=== PATIENT | male | born 1955 | race Caucasian/White ===

== ENCOUNTER 2024-01-02 11:48 | Inpatient (IN) | payer MEDICARE ==
--- NOTE | 2024-01-02 13:09 | ED ---
Weakness HPI - General Chief complaint: Extremity Problem,Nontraumatic Stated complaint: unable to ambulate/leg infections Time Seen by Provider: 01/02/24 11:49 Source: patient, EMS, RN notes reviewed Mode of arrival: EMS Limitations: no limitations - History of Present Illness Initial comments: This is a 68-year-old male who presents to the emergency department for increasing weakness and lower extremity infections. Patient has been dealing with wounds to his left leg on and off over the last 3 years. Over the last year this has been much more persistent. A couple of weeks ago his PCP noticed drainage from the wounds and told EMS they were concerned about the patient becoming septic. They recommended he come to the emergency department for e valuation at that time, however he did not want to go then. He was started on Bactrim for these wounds and has been on it for several days. States that he has also been falling very frequently and has been increasingly weak over the last couple of weeks. EMS comes to his house almost daily when the patient falls to help him get back up. He does not have shortness of breath at rest, but does get winded very easily. Denies any chest pain. He is supposed to be on a diuretic but does not like to take it because it makes him urinate frequently. He is unable to get to the bathroom in time, causing him to urinate on himself. Denies any nausea, vomiting, fevers, or chills. MD Complaint: generalized weakness - Related Data Home Medications Medication Instructions Recorded Confirmed Bumetanide [BUMEX] 2 mg PO DAILY PRN 01/02/24 01/02/24 Levothyroxine Sodium [Synthroid] 137 mcg PO DAILY 01/02/24 01/02/24 Loratadine [Claritin] 10 mg PO DAILY 01/02/24 01/02/24 Metoprolol Tartrate [Lopressor] 25 mg PO BID 01/02/24 01/02/24 Sulfamethox-Tmp 800-160Mg [Bactrim 1 tab PO BID 01/02/24 01/02/24 DS 800-160 mg] Warfarin [Coumadin] 10 - 15 mg PO HS 01/02/24 01/02/24 glipiZIDE XL [Glucotrol Xl] 5 mg PO DAILY 01/02/24 01/02/24 metFORMIN HCL [Glucophage] 500 mg PO BID 01/02/24 01/02/24 Allergies Allergy/AdvReac Type Severity Reaction Status Date / Time No Known Allergies Allergy Verified 01/02/24 13:20 Review of Systems ROS Statement: Those systems with pertinent positive or pertinent negative responses have been documented in the HPI. ROS Other: All systems not noted in ROS Statement are negative. Past Medical History Past Medical History: Diabetes Mellitus History of Any Multi-Drug Resistant Organisms: None Reported Additional Past Surgical History / Comment(s): knee surgery Smoking Status: Never smoker Past Alcohol Use History: Rare Past Drug Use History: None Reported General Exam Limitations: no limitations General appearance: alert, in no apparent distress Head exam: Present: atraumatic, normocephalic, normal inspection Respiratory exam: Present: normal lung sounds bilaterally. Absent: respiratory distress, wheezes, rales, rhonchi, stridor Cardiovascular Exam: Present: regular rate, normal rhythm, normal heart sounds. Absent: systolic murmur, diastolic murmur, rubs, gallop, clicks GI/Abdominal exam: Present: other (Cutaneous candidiasis in the abdominal pannus) Extremities exam: Present: other (Left lower extremity erythema with multiple actively draining wounds and circumferential involvement. 2+ DP and PT pulses) Neurological exam: Present: alert, oriented X3, CN II-XII intact Psychiatric exam: Present: normal affect, normal mood Skin exam: Present: warm, dry, intact, normal color. Absent: rash Course Vital Signs 01/02/24 01/02/24 11:54 15:03 Temperature 97.9 F Pulse Rate 77 80 Respiratory 17 17 Rate Blood Pressure 127/68 127/59 O2 Sat by Pulse 98 97 Oximetry Medical Decision Making - Medical Decision Making This is a 68-year-old male who presents to the emergency department for weakness. Was pt. sent in by a medical professional or institution? @ -No Did you speak to anyone other than the patient for history? @ -No Did you review nursing and triage notes? @ -Yes, and I agree, it is accurate with regards to the patient's symptoms. Were old charts reviewed? @ -No Differential Diagnosis? @ -Differential Weakness: Hypoglycemia, shock, sepsis, hyponatremia, anemia, infection, HI, ETOH, adverse medicine reaction, overdose, stroke, this is not meant to be an all-inclusive l ist. EKG interpreted by me (3pts min.)? @ -EKG interpreted by me demonstrating the following: Sinus rhythm. Ventricular rate 69 bpm, [place] interval 170 ms, QRS duration 111 ms, QTc 417 ms. X-rays interpreted by me (1pt min.)? @ -Chest x-ray obtained, my interpretation identifies no localized consolidations or infiltrates. X-ray of the left tib-fib obtained. My interpretation identifies no evidence of soft tissue swelling. CT interpreted by me (1pt min.)? @ -Not obtained U/S interpreted by me (1pt. min.)? @ -Not obtained What testing was considered but not performed? (CT, X-rays, U/S, labs)? Why? @ -None What meds were considered but not given? Why? @ -None Did you discuss the management of the patient with other professionals? @ -Yes, Dr. Lowery, who accepts the patient for admission Did you reconcile home meds? @ -Yes Was smoking cessation discussed for >3mins.? @ -No Was critical care preformed (if so, how long)? @ -No Were there social determinants of health that impacted care today? How? (Homelessness, low income, unemployed, alcoholism, drug addiction, transportation, low edu. Level, literacy, decrease access to med. care, senior living, rehab)? @ -No Was there de-escalation of care discussed even if they declined? (Discuss DNR or withdrawal of care, Hospice)? @ -No What co-morbidities impacted this encounter? (DM, HTN, Smoking, COPD, CAD, Cancer, CVA, Hep., AIDS, mental health diagnosis, sleep apnea, morbid obesity)? @ -DM, hypothyroidism, morbid obesity, hx of PE Was patient admitted / discharged? @ -Admitted. Lab work demonstrates a mildly elevated CRP of 3.5 and was otherwise unremarkable. Urinalysis negative for signs of infection. X-ray of the chest and left tib-fib revealed no acute process. Patient's leg was covered in multiple wounds with circumferential involvement and active drainage. His abdominal pannus had significant cutaneous candidiasis. Patient states that he cleans this area with bleach regularly. Patient exhibiting fairly significant debility as well. He is falling essentially daily and has to call the fire department for assistance in getting back up and his is concerned about him continuing to decline and being able to care for him. Will admit patient to medicine for the left lower extremity cellulitis and failure of outpatient management as well as increasing weakness and debility. Wound cultures obtained. Patient started on vancomycin and cefepime. Nystatin powder ordered for the cutaneous candidiasis in the abdominal pannus. Consult placed for infectious disease and wound care. PT and OT consulted as well. Case discussed with ED attending Dr. Patterson. Undiagnosed new problem with uncertain prognosis? @ -None Drug Therapy requiring intensive monitoring for toxicity (Heparin, Nitro, Insulin, Cardizem)? @ -None Were any procedures done? @ -None Diagnosis/symptom? @ -Left lower extremity cellulitis and nonhealing wounds Acute, or Chronic, or Acute on Chronic? @ -Chronic Uncomplicated (without systemic symptoms) or Complicated (systemic symptoms)? @ -Uncomplicated Side effects of treatment? @ -None Exacerbation, Progression, or Severe Exacerbation] @ -Progression Poses a threat to life or bodily function? @ -Yes, can lead to life threatening infection - Lab Data Result diagrams: 01/02/24 13:01 01/02/24 13:01 Lab Results 01/02/24 01/02/24 01/02/24 Range/Units 13:01 13:01 13:01 WBC 3.5 L (3.8-10.6) k/uL RBC 4.23 L (4.30-5.90) m/uL Hgb 13.7 (13.0-17.5) gm/dL Hct 42.1 (39.0-53.0) % MCV 99.5 (80.0-100.0) fL MCH 32.3 (25.0-35.0) pg MCHC 32.5 (31.0-37.0) g/dL RDW 13.7 (11.5-15.5) % Plt Count 146 L (150-450) k/uL MPV 7.6 Neutrophils % 71 % Lymphocytes % 15 % Monocytes % 7 % Eosinophils % 6 % Basophils % 0 % Neutrophils # 2.5 (1.3-7.7) k/uL Lymphocytes # 0.5 L (1.0-4.8) k/uL Monocytes # 0.2 (0-1.0) k/uL Eosinophils # 0.2 (0-0.7) k/uL Basophils # 0.0 (0-0.2) k/uL PT 22.3 H (10.0-12.5) sec INR 2.2 H (<1.2) APTT 39.0 H (22.0-30.0) sec Sodium (137-145) mmol/L Potassium (3.5-5.1) mmol/L Chloride (98-107) mmol/L Carbon Dioxide (22-30) mmol/L Anion Gap mmol/L BUN (9-20) mg/dL Creatinine (0.66-1.25) mg/dL Est GFR (CKD-EPI)AfAm (>60 ml/min/1.73 sqM) Est GFR (CKD-EPI)NonAf (>60 ml/min/1.73 sqM) Glucose (74-99) mg/dL Calcium (8.4-10.2) mg/dL Magnesium (1.6-2.3) mg/dL Total Bilirubin (0.2-1.3) mg/dL AST (17-59) U/L ALT (4-49) U/L Alkaline Phosphatase (38-126) U/L Troponin I (0.000-0.034) ng/mL C-Reactive Protein (<1.0) mg/dL NT-Pro-B Natriuret Pep pg/mL Total Protein (6.3-8.2) g/dL Albumin (3.5-5.0) g/dL TSH (0.465-4.680) mIU/L Urine Color Yellow Urine Appearance Clear (Clear) Urine pH 5.5 (5.0-8.0) Ur Specific [place] 1.023 (1.001-1.035) Urine Protein Trace H (Negative) Urine Glucose (UA) Negative (Negative) Urine Ketones Negative (Negative) Urine Blood Trace H (Negative) Urine Nitrite Negative (Negative) Urine Bilirubin Negative (Negative) Urine Urobilinogen <2.0 (<2.0) mg/dL Ur Leukocyte Esterase Negative (Negative) Urine RBC 2 (0-5) /hpf Urine WBC 1 (0-5) /hpf Ur Squamous Epith Cells <1 (0-4) /hpf Hyaline Casts 1 (0-2) /lpf Urine Mucus Occasional H (None) /hpf 01/02/24 01/02/24 Range/Units 13:01 13:01 WBC (3.8-10.6) k/uL RBC (4.30-5.90) m/uL Hgb (13.0-17.5) gm/dL Hct (39.0-53.0) % MCV (80.0-100.0) fL MCH (25.0-35.0) pg MCHC (31.0-37.0) g/dL RDW (11.5-15.5) % Plt Count (150-450) k/uL MPV Neutrophils % % Lymphocytes % % Monocytes % % Eosinophils % % Basophils % % Neutrophils # (1.3-7.7) k/uL Lymphocytes # (1.0-4.8) k/uL Monocytes # (0-1.0) k/uL Eosinophils # (0-0.7) k/uL Basophils # (0-0.2) k/uL PT (10.0-12.5) sec INR (<1.2) APTT (22.0-30.0) sec Sodium 139 (137-145) mmol/L Potassium 5.0 (3.5-5.1) mmol/L Chloride 105 (98-107) mmol/L Carbon Dioxide 29 (22-30) mmol/L Anion Gap 5 mmol/L BUN 20 (9-20) mg/dL Creatinine 1.21 (0.66-1.25) mg/dL Est GFR (CKD-EPI)AfAm 70 (>60 ml/min/1.73 sqM) Est GFR (CKD-EPI)NonAf 61 (>60 ml/min/1.73 sqM) Glucose 95 (74-99) mg/dL Calcium 9.1 (8.4-10.2) mg/dL Magnesium 1.7 (1.6-2.3) mg/dL Total Bilirubin 0.9 (0.2-1.3) mg/dL AST 46 (17-59) U/L ALT 21 (4-49) U/L Alkaline Phosphatase 84 (38-126) U/L Troponin I <0.012 (0.000-0.034) ng/mL C-Reactive Protein 3.5 H (<1.0) mg/dL NT-Pro-B Natriuret Pep 512 pg/mL Total Protein 8.6 H (6.3-8.2) g/dL Albumin 3.9 (3.5-5.0) g/dL TSH 1.860 (0.465-4.680) mIU/L Urine Color Urine Appearance (Clear) Urine pH (5.0-8.0) Ur Specific [place] (1.001-1.035) Urine Protein (Negative) Urine Glucose (UA) (Negative) Urine Ketones (Negative) Urine Blood (Negative) Urine Nitrite (Negative) Urine Bilirubin (Negative) Urine Urobilinogen (<2.0) mg/dL Ur Leukocyte Esterase (Negative) Urine RBC (0-5) /hpf Urine WBC (0-5) /hpf Ur Squamous Epith Cells (0-4) /hpf Hyaline Casts (0-2) /lpf Urine Mucus (None) /hpf - Radiology Data Radiology results: report reviewed, image reviewed Disposition Clinical Impression: Cellulitis of left lower extremity, Non-healing wound of left lower extremity, Weakness, Debility Disposition: ADMITTED IP TO THIS HOSP
--- NOTE | 2024-01-02 13:15 | XR ---
EXAMINATION TYPE: XR tibia fibula LT DATE OF EXAM: 01/02/2024 1:07 PM COMPARISON: None. CLINICAL INDICATION: Male, 68 years old with history of Infection, pain, TECHNIQUE: 2 view(s) obtained. FINDINGS: Degenerative changes are at the knee joint space greater on the medial aspect loss of joint space. La rge lateral femoral condylar and tibial plateau spurs are present. Large medial tibial plateau spur i s present. Skin calcifications are present. Vascular calcification is present. Posterior inferior pat ellar spurring is present. No significant joint effusion is evident. No suspicious cortical erosion IMPRESSION: 1. No acute osseous abnormality left tibia and fibula [facility], , 01/02/2024 1:13 PM
--- NOTE | 2024-01-02 13:16 | XR ---
EXAMINATION TYPE: XR chest 2V DATE OF EXAM: 01/02/2024 1:07 PM COMPARISON: None. CLINICAL INDICATION: Male, 68 years old with history of Weakness, TECHNIQUE: XR chest 2V view(s) obtained. FINDINGS: The heart size is normal. The pulmonary vasculature is normal. The lungs are clear. IMPRESSION: 1. No acute pulmonary process. [facility], , 01/02/2024 1:14 PM
[2024-01-02 14:00] LABS: Appearance,Urine Clear (Clear); Bilirubin,Urine Negative (Negative); Blood,Urine Trace (Negative); Color,Urine Yellow; Glucose,Urine (UA) Negative (Negative); Hyaline Casts,Urine 1 /lpf (0-2); Ketones,Urine Negative (Negative); Leukocyte Esterase,Urine Negative (Negative); Mucus,Urine Occasional /hpf; Nitrite,Urine Negative (Negative); PH, Urine 5.5 (5.0-8.0); Protein,Urine Trace (Negative); RBC,Urine 2 /hpf (0-5); Specific Gravity,Urine 1.023 (1.001-1.035); Squamous Epithelial Cell,Urine <1 /hpf (0-4); Urobilinogen,Urine <2.0 mg/dL (<2.0); WBC,Urine 1 /hpf (0-5)
[2024-01-02 14:03] LABS: Basophils % (A) 0 %; Eosinophils # (A) 0.2 k/uL (0-0.7); Eosinophils % (A) 6 %; HCT 42.1 % (39.0-53.0); HGB 13.7 gm/dL (13.0-17.5); Lymphocytes # (A) 0.5 k/uL (1.0-4.8); Lymphocytes % (A) 15 %; MCH 32.3 pg (25.0-35.0); MCHC 32.5 g/dL (31.0-37.0); MCV 99.5 fL (80.0-100.0); Mean Platelet Volume 7.6; Monocytes # (A) 0.2 k/uL (0-1.0); Monocytes % (A) 7 %; Neutrophils # (A) 2.5 k/uL (1.3-7.7); Neutrophils % (A) 71 %; Platelet Count 146 k/uL (150-450); RBC 4.23 m/uL (4.30-5.90); RDW 13.7 % (11.5-15.5); WBC 3.5 k/uL (3.8-10.6)
[2024-01-02 14:16] LABS: ALT 21 U/L (4-49); African American GFR (CKD) 70 (>60 ml/min/1.73 sqM); Anion Gap 5 mmol/L; Blood Urea Nitrogen 20 mg/dL (9-20); C Reactive Protein 3.5 mg/dL (<1.0); Calcium 9.1 mg/dL (8.4-10.2); Carbon Dioxide 29 mmol/L (22-30); Chloride 105 mmol/L (98-107); Glucose 95 mg/dL (74-99); INR 2.2 (<1.2); Non-African American GFR(CKD) 61 (>60 ml/min/1.73 sqM); Prothrombin Time 22.3 sec (10.0-12.5); Sodium 139 mmol/L (137-145); Total Bilirubin 0.9 mg/dL (0.2-1.3)
[2024-01-02 14:18] LABS: NT-Pro-B-Type Natriuretic Pept 512 pg/mL
[2024-01-02 14:19] LABS: Magnesium 1.7 mg/dL (1.6-2.3); Total Protein 8.6 g/dL (6.3-8.2)
[2024-01-02 14:20] LABS: AST 46 U/L (17-59); Albumin 3.9 g/dL (3.5-5.0); Alkaline Phosphatase 84 U/L (38-126)
[2024-01-02] MEDS ORDERED: VANCOMYCIN IV PER PHARMACY 1 EACH MISC MISCELLANE PRN (15:25)
[2024-01-02] MEDS ORDERED: HYDROcodone/APAP 5-325MG 1 EACH TAB PO PRN (15:26)
[2024-01-02] MEDS ORDERED: ACETAMINOPHEN TAB 325 MG TAB PO PRN (15:26)
[2024-01-02] MEDS ORDERED: MORPHINE SULFATE 4 MG/ML SYRINGE IV PRN (15:26)
[2024-01-02] MEDS ORDERED: NALOXONE 0.4 MG/ML 1 ML VIAL IV PRN (15:26)
[2024-01-02] MEDS ORDERED: ONDANSETRON 4 MG/2 ML VIAL IVP PRN (15:26)
[2024-01-02] MEDS ORDERED: BUMETANIDE 1 MG TAB PO PRN (15:30)
[2024-01-02] MEDS: CEFEPIME 2 GM in SODIUM CHLORIDE 0.9% 100 ML IVPB SCH (15:44)
[2024-01-02 17:16] LABS: Glucose,Whole Blood 82 mg/dL (70-110)
[2024-01-02] MEDS: WARFARIN 10 MG TAB PO ONE (18:54)
[2024-01-02] MEDS: metFORMIN 500 MG TAB PO SCH (18:54)
[2024-01-02] MEDS: VANCOMYCIN 2,250 MG in SODIUM CHLORIDE 0.9% 500 ML 500 ML IVPB ONE (18:55)
[2024-01-02 20:34] LABS: Glucose,Whole Blood 88 mg/dL (70-110)
[2024-01-02] MEDS: NYSTATIN 100,000 UNIT/GM POWD 15 GM TOPICAL SCH (20:38)
[2024-01-02] MEDS: METOPROLOL TARTRATE 25 MG TAB PO SCH (20:38)
[2024-01-03 01:44] LABS: Glucose,Whole Blood 102 mg/dL (70-110)
[2024-01-03] MEDS: LEVOTHYROXINE 137 MCG TAB PO SCH (05:34)
[2024-01-03 06:57] LABS: INR 2.2 (<1.2); Prothrombin Time 22.4 sec (10.0-12.5)
[2024-01-03 07:05] LABS: African American GFR (CKD) 70 (>60 ml/min/1.73 sqM); Anion Gap 8 mmol/L; Blood Urea Nitrogen 18 mg/dL (9-20); Calcium 8.8 mg/dL (8.4-10.2); Carbon Dioxide 26 mmol/L (22-30); Chloride 106 mmol/L (98-107); Glucose 98 mg/dL (74-99); Non-African American GFR(CKD) 61 (>60 ml/min/1.73 sqM); Potassium 4.4 mmol/L (3.5-5.1); Sodium 140 mmol/L (137-145)
[2024-01-03 07:16] LABS: Glucose,Whole Blood 101 mg/dL (70-110)
[2024-01-03] MEDS: LORATADINE 10 MG TAB PO SCH (08:12)
[2024-01-03] MEDS: PANTOPRAZOLE 40 MG/10 ML VIAL IV SCH (08:13)
[2024-01-03] MEDS: VANCOMYCIN 2,250 MG in SODIUM CHLORIDE 0.9% 500 ML 500 ML IVPB SCH (10:04)
[2024-01-03 12:22] LABS: Glucose,Whole Blood 66 mg/dL (70-110)
[2024-01-03 12:47] LABS: Glucose,Whole Blood 80 mg/dL (70-110)
--- NOTE | 2024-01-03 13:49 | P.HPIM ---
History of Present Illness H&P Date: 01/03/24 History of present illness; patient 68-year-old gentleman with past medical history significant for atrial fibrillation, hypertension, diabetes mellitus who presented to the ER because of left leg wounds. Patient stated that he has been dealing with left leg wounds for the last few months. Patient stated that for the last few months he has noticed that there is drainage from his wound on left leg. Patient also noted increasing redness and pain on his left leg. Patient saw his primary care doctor who referred him to come to the ER but patient at that time refused. Patient was given an antibiotic in the form of Bactrim which he has been taking. Patient also complaining of increased weakness and frequent falls. Because of increasing weakness and left leg wounds, patient came to the ER as mentioned above Initial lab work done in the ER showed WBC 3.5, hemoglobin 13.7, platelet count 146, INR 2.2, sodium 139, [place] 5, BUN 20, creatinine 1.21, glucose 95, HbA1c level 5.3 calcium 9.1, magnesium 1.7, bilirubin 0 point urine negative for any infection EKG done in the ER showed heart rate of 69, no ST segment elevation or depression seen, no T-wave inversions seen. X-ray tibia and fibula of left showed no osseous abnormality Chest x-ray done in the ER showed no acute cardiopulmonary process Patient admitted to internal medicine service REVIEW OF SYSTEMS: CONSTITUTIONAL: No fever, no malaise, no fatigue. HEENT: No recent visual problems or hearing problems. Denied any sore throat. CARDIOVASCULAR: No chest pain, orthopnea, PND, no palpitations, no syncope. PULMONARY: No shortness of breath, no cough, no hemoptysis. GASTROINTESTINAL: No diarrhea, no nausea, no vomiting, no abdominal pain. NEUROLOGICAL: No headaches, no weakness, no numbness. HEMATOLOGICAL: Denies any bleeding or petechiae. GENITOURINARY: Denies any burning micturition, frequency, or urgency. MUSCULOSKELETAL/RHEUMATOLOGICAL: As mentioned above ENDOCRINE: Denies any polyuria or polydipsia. The rest of the 14-point review of systems is negative. PHYSICAL EXAMINATION: GENERAL: The patient is alert and oriented x3, not in any acute distress. Well developed, well nourished. HEENT: Pupils are round and equally reacting to light. EOMI. No scleral icterus. No conjunctival pallor. Normocephalic, atraumatic. No pharyngeal erythema. No thyromegaly. CARDIOVASCULAR: S1 and S2 present. No murmurs, rubs, or gallops. PULMONARY: Chest is clear to auscultation, no wheezing or crackles. ABDOMEN: Soft, nontender, nondistended, normoactive bowel sounds. No palpable organomegaly. MUSCULOSKELETAL: Left leg chronic wound seen, slight erythema noticeable, scaliness of skin noticed EXTREMITIES: No cyanosis, clubbing, or pedal edema. NEUROLOGICAL: Gross neurological examination did not reveal any focal deficits. SKIN: No rashes. Assessment and plan Left leg cellulitis Frequent falls Debility Hypertension Diabetes mellitus History of PE Monitor vital signs Monitor CBC Monitor CMP Ordered blood culture Ordered wound cultures Ordered wound care Start IV cefepime Start pharmacy to dose vancomycin Ordered blood sugar monitoring and sliding scale insulin Resume home med Consult ID Labs and medication were reviewed.. Continue same treatment. Continue with symptomatic treatment. Resume home medication. Monitor labs and vitals. DVT and GI prophylaxis. Further recommendations as per clinical course of the patient Dictation was produced using [employer] dictation software. please excuse any grammatical, word or spelling errors. Past Medical History Past Medical History: Diabetes Mellitus Additional Past Medical History / Comment(s): Rhabdo History of Any Multi-Drug Resistant Organisms: None Reported Past Surgical History: Joint Replacement Additional Past Surgical History / Comment(s): knee surgery Smoking Status: Never smoker Past Alcohol Use History: Rare Past Drug Use History: None Reported - Past Family History Sister(s) Family Medical History: Vascular Disorder Medications and Allergies Home Medications Medication Instructions Recorded Confirmed Type Acetaminophen-Codeine 300-30mg 1 tab PO Q6H PRN 01/02/24 01/02/24 History [Tylenol w/codeine #3] Bumetanide [BUMEX] 2 mg PO DAILY PRN 01/02/24 01/02/24 History Cyclobenzaprine [Flexeril] 10 mg PO HS 01/02/24 01/02/24 History Levothyroxine Sodium [Synthroid] 137 mcg PO DAILY 01/02/24 01/02/24 History Loratadine [Claritin] 10 mg PO DAILY 01/02/24 01/02/24 History Metoprolol Tartrate [Lopressor] 25 mg PO BID 01/02/24 01/02/24 History Sulfamethox-Tmp 800-160Mg [Bactrim 1 tab PO BID 01/02/24 01/02/24 History DS 800-160 mg] Warfarin [Coumadin] 10 - 15 mg PO HS 01/02/24 01/02/24 History glipiZIDE XL [Glucotrol Xl] 5 mg PO DAILY 01/02/24 01/02/24 History metFORMIN HCL [Glucophage] 500 mg PO BID 01/02/24 01/02/24 History Allergies Allergy/AdvReac Type Severity Reaction Status Date / Time No Known Allergies Allergy Verified 01/02/24 13:20 Physical Exam Vitals: Vital Signs Temp Pulse Pulse Resp BP BP BP 01/03/24 07:15 98.3 F 70 16 122/68 01/03/24 02:00 98 F 79 16 114/65 01/02/24 19:37 97.6 F 88 16 155/79 01/02/24 16:42 98.2 F 83 18 144/84 01/02/24 15:03 80 17 127/59 01/02/24 11:54 97.9 F 77 17 127/68 Pulse Ox 01/03/24 07:15 95 01/03/24 02:00 93 L 01/02/24 19:37 96 01/02/24 16:42 94 L 01/02/24 15:03 97 01/02/24 11:54 98 Intake and Output 01/02/24 01/03/24 01/03/24 22:59 06:59 14:59 Output Total 500 Balance -500 Output: Urine 500 Other: Voiding Method Bedside Commode Urinal Diaper # Voids 1 # Bowel Movements 1 Weight 167.829 kg Results CBC & Chem 7: 01/02/24 13:01 01/03/24 05:56 Labs: Abnormal Lab Results - Last 24 Hours (Table) 01/02/24 01/02/24 01/02/24 Range/Units 13:01 13:01 13:01 WBC 3.5 L (3.8-10.6) k/uL RBC 4.23 L (4.30-5.90) m/uL Plt Count 146 L (150-450) k/uL Lymphocytes # 0.5 L (1.0-4.8) k/uL PT 22.3 H (10.0-12.5) sec INR 2.2 H (<1.2) APTT 39.0 H (22.0-30.0) sec C-Reactive Protein (<1.0) mg/dL Total Protein (6.3-8.2) g/dL Urine Protein Trace H (Negative) Urine Blood Trace H (Negative) Urine Mucus Occasional H (None) /hpf 01/02/24 01/03/24 Range/Units 13:01 05:56 WBC (3.8-10.6) k/uL RBC (4.30-5.90) m/uL Plt Count (150-450) k/uL Lymphocytes # (1.0-4.8) k/uL PT 22.4 H (10.0-12.5) sec INR 2.2 H (<1.2) APTT (22.0-30.0) sec C-Reactive Protein 3.5 H (<1.0) mg/dL Total Protein 8.6 H (6.3-8.2) g/dL Urine Protein (Negative) Urine Blood (Negative) Urine Mucus (None) /hpf Thrombosis Risk Factor Assmnt - Choose All That Apply Each Factor Represents 1 point: Obesity (BMI >25), Swollen legs (current) Each Risk Factor Represents 2 Points: Age 61-74 years Thrombosis Risk Factor Assessment Total Risk Factor Score: 4 Thrombosis Risk Factor Assessment Level: Moderate Risk
[2024-01-03 17:10] LABS: Glucose,Whole Blood 94 mg/dL (70-110)
[2024-01-03] MEDS: WARFARIN 10 MG TAB PO ONE (17:43)
[2024-01-03 20:24] LABS: Glucose,Whole Blood 87 mg/dL (70-110)
--- NOTE | 2024-01-03 22:13 | P.CONS ---
History of Present Illness - Reason for Consult Consult date: 01/03/24 Left lower extremity cellulitis Requesting physician: Denisse Thomas - Chief Complaint Left lower extremity wound and pain x weeks - History of Present Illness Patient is a 68-year-old male with a past medical history significant for diabetes mellitus chronic swelling to the bilateral lower extremity and this patient has been dealing with ulceration to bilateral lower extremity off-and-on for the last 3 years and has been managed mostly at home by the home care nurses patient did have a persistent nonhealing of the wound to the left lower extremity which seem to be have increasing in size and did have some drainage with concern for infection the patient presented to the hospital patient denies high-grade fever or chills and no fever have been recorded on presentation to the hospital patient was not tachycardic hypotensive or hypoxic patient did have white count of 3.5 INR is 2.2 creatinine electrolytes and liver enzymes are normal urine has been negative local cultures obtained which are currently pending patient did have x-ray of the tibia and fibula which was negative for any bony changes chest x-ray was no acute pulmonary process patient was started on vancomycin and cefepime infectious disease was consulted for further management of antibiotic therapy patient has been strongly reporting nonhealing of the wound for weeks to months with acute worsening over the last few days he did have mild dull aching pain without any radiation with associated swelling and redness and did have some drainage Review of Systems Positive point and negatives has been mentioned in the HPI, complete review of systems was performed and all other systems are negative Past Medical History Past Medical History: Diabetes Mellitus Additional Past Medical History / Comment(s): Rhabdo History of Any Multi-Drug Resistant Organisms: None Reported Past Surgical History: Joint Replacement Additional Past Surgical History / Comment(s): knee surgery Smoking Status: Never smoker Past Alcohol Use History: Rare Past Drug Use History: None Reported - Past Family History Sister(s) Family Medical History: Vascular Disorder Medications and Allergies Home Medications Medication Instructions Recorded Confirmed Type Acetaminophen-Codeine 300-30mg 1 tab PO Q6H PRN 01/02/24 01/02/24 History [Tylenol w/codeine #3] Bumetanide [BUMEX] 2 mg PO DAILY PRN 01/02/24 01/02/24 History Cyclobenzaprine [Flexeril] 10 mg PO HS 01/02/24 01/02/24 History Levothyroxine Sodium [Synthroid] 137 mcg PO DAILY 01/02/24 01/02/24 History Loratadine [Claritin] 10 mg PO DAILY 01/02/24 01/02/24 History Metoprolol Tartrate [Lopressor] 25 mg PO BID 01/02/24 01/02/24 History Sulfamethox-Tmp 800-160Mg [Bactrim 1 tab PO BID 01/02/24 01/02/24 History DS 800-160 mg] Warfarin [Coumadin] 10 - 15 mg PO HS 01/02/24 01/02/24 History glipiZIDE XL [Glucotrol Xl] 5 mg PO DAILY 01/02/24 01/02/24 History metFORMIN HCL [Glucophage] 500 mg PO BID 01/02/24 01/02/24 History Allergies Allergy/AdvReac Type Severity Reaction Status Date / Time No Known Allergies Allergy Verified 01/02/24 13:20 Physical Exam Vitals: Vital Signs Temp Pulse Pulse Resp BP BP BP 01/03/24 07:15 98.3 F 70 16 122/68 01/03/24 02:00 98 F 79 16 114/65 01/02/24 19:37 97.6 F 88 16 155/79 01/02/24 16:42 98.2 F 83 18 144/84 01/02/24 15:03 80 17 127/59 Pulse Ox 01/03/24 07:15 95 01/03/24 02:00 93 L 01/02/24 19:37 96 01/02/24 16:42 94 L 01/02/24 15:03 97 Intake and Output 01/02/24 01/03/24 01/03/24 22:59 06:59 14:59 Output Total 500 Balance -500 Output: Urine 500 Other: Voiding Method Bedside Commode Bedside Commode Urinal Urinal Diaper Diaper # Voids 1 # Bowel Movements 1 Weight 167.829 kg GENERAL DESCRIPTION: Elderly male lying in bed, no distress. No tachypnea or accessory muscle of respiration use. HEENT: Shows Pallor , no scleral icterus. Oral mucous membrane is dry. No pharyngeal erythema or thrush NECK: Trachea central, no thyromegaly. LUNGS: Unlabored breathing. Clear to auscultation anteriorly. No wheeze or crackle. HEART: S1, S2, regular rate and rhythm. No loud murmur ABDOMEN: Soft, no tenderness , guarding or rigidity, no organomegaly EXTREMITIES: Patient did have diffuse swelling to the left leg with multiple ulceration wound base with no slough tissue or foul-smelling drainage SKIN: No rash, no masses palpable. NEUROLOGICAL: The patient is awake, alert, oriented x3, mood and affect normal. Results CBC & Chem 7: 01/02/24 13:01/03/24 05:56 Labs: Abnormal Lab Results - Last 24 Hours (Table) 01/02/24 01/02/24 01/02/24 Range/Units 13:01 13: 13: WBC 3.5 L (3.8-10.6) k/uL RBC 4.23 L (4.30-5.90) m/uL Plt Count 146 L (150-450) k/uL Lymphocytes # 0.5 L (1.0-4.8) k/uL PT 22.3 H (10.0-12.5) sec INR 2.2 H (<1.2) APTT 39.0 H (22.0-30.0) sec C-Reactive Protein (<1.0) mg/dL Total Protein (6.3-8.2) g/dL Urine Protein Trace H (Negative) Urine Blood Trace H (Negative) Urine Mucus Occasional H (None) /hpf 01/02/24 01/03/24 Range/Units 13:01 05:56 WBC (3.8-10.6) k/uL RBC (4.30-5.90) m/uL Plt Count (150-450) k/uL Lymphocytes # (1.0-4.8) k/uL PT 22.4 H (10.0-12.5) sec INR 2.2 H (<1.2) APTT (22.0-30.0) sec C-Reactive Protein 3.5 H (<1.0) mg/dL Total Protein 8.6 H (6.3-8.2) g/dL Urine Protein (Negative) Urine Blood (Negative) Urine Mucus (None) /hpf Assessment and Plan (1) Cellulitis of left lower extremity Current Visit: Yes Status: Acute Code(s): L03.116 - CELLULITIS OF LEFT LOWER LIMB SNOMED Code(s): 98272368565128258 (2) Non-healing wound of left lower extremity Current Visit: Yes Status: Acute Code(s): S81.802A - UNSPECIFIED OPEN WOUND, LEFT LOWER LEG, INITIAL ENCOUNTER SNOMED Code(s): 53362284 Plan: 1patient with multiple nonhealing wound to the left lower extremity likely venous stasis ulcer in this patient who did have diffuse swelling and redness and concerning for secondary cellulitis as the patient reported recent worsening of the wound and drainage will need to cover for both gram-positive as well as gram-negative pathogen. 2we will advise local wound care with dry Aquacel silver dressing followed by Trent wrap from just above the tube to below the knee to keep the swelling down dressing can be changed every 24-48 hours depending upon the drainage. 3we will continue with empiric vancomycin and cefepime while waiting for the culture to finalize We will follow on clinical condition and cultures to further adjust medication if needed Thank you for this consultation we will follow the patient along with you Dictation was produced using [employer] dictation software. please excuse any gramma tical, word or spelling errors. Time with Patient: Greater than 30
[2024-01-04 06:18] LABS: INR 2.5 (<1.2); Prothrombin Time 24.6 sec (10.0-12.5)
[2024-01-04 07:22] LABS: Glucose,Whole Blood 131 mg/dL (70-110)
[2024-01-04 08:41] LABS: ALT 16 U/L (10-49); AST 31 U/L (14-35); Albumin 3.2 g/dL (3.8-4.9); Albumin/Globulin Ratio 0.82 Ratio (1.60-3.17); Alkaline Phosphatase 80 U/L (41-126); BUN/Creat Ratio 15.85 Ratio (12.00-20.00); Blood Urea Nitrogen 20.6 mg/dL (9.0-27.0); Calcium 8.6 mg/dL (8.7-10.3); Carbon Dioxide 23.4 mmol/L (21.6-31.8); Chloride 104 mmol/L (96-109); Globulin 3.9 g/dL (1.6-3.3); Glucose 93 mg/dL (70-110); Potassium 4.4 mmol/L (3.5-5.5); Sodium 138 mmol/L (135-145); Total Bilirubin 0.4 mg/dL (0.3-1.2); Total Protein 7.1 g/dL (6.2-8.2)
[2024-01-04] MEDS: BUMETANIDE 1 MG TAB PO SCH (08:51)
[2024-01-04 08:54] LABS: Basophils # (A) 0.03 X 10*3/uL (0.00-0.10); Basophils % (A) 0.8 %; Eosinophils # (A) 0.48 X 10*3/uL (0.04-0.35); Eosinophils % (A) 13.6 %; HCT 37.1 % (39.6-50.0); Lymphocytes # (A) 0.73 X 10*3/uL (0.90-5.00); Lymphocytes % (A) 20.7 %; MCH 31.9 pg (27.0-32.0); MCHC 32.3 g/dL (32.0-37.0); MCV 98.7 FL (80.0-97.0); Mean Platelet Volume 9.8 FL (9.5-12.2); Monocytes # (A) 0.39 X 10*3/uL (0.20-1.00); NRBC Per 100 WBC 0 X 10*3/uL (0.00-0.01); Neutrophils # (A) 1.89 X 10*3/uL (1.80-7.70); Neutrophils % (A) 53.6 %; Platelet Count 137 X 10*3/uL (140-440); RBC 3.76 X 10*6/uL (4.40-5.60); RDW 13.8 % (11.5-14.5); WBC 3.53 X 10*3/uL (4.50-10.00)
[2024-01-04 12:14] LABS: Glucose,Whole Blood 71 mg/dL (70-110)
--- NOTE | 2024-01-04 12:43 | P.PN ---
Subjective Progress Note Date: 01/04/24 patient 68-year-old gentleman with past medical history significant for atrial fibrillation, hypertension, diabetes mellitus who presented to the ER because of left leg wounds. Patient stated that he has been dealing with left leg wounds for the last few months. Patient stated that for the last few months he has noticed that there is drainage from his wound on left leg. Patient also noted increasing redness and pain on his left leg. Patient saw his primary care doctor who referred him to come to the ER but patient at that time refused. Patient was given an antibiotic in the form of Bactrim which he has been taking. Patient also complaining of increased weakness and frequent falls. Because of increasing weakness and left leg wounds, patient came to the ER as mentioned above Initial lab work done in the ER showed WBC 3.5, hemoglobin 13.7, platelet count 146, INR 2.2, sodium 139, Tessman 5, BUN 20, creatinine 1.21, glucose 95, HbA1c level 5.3 calcium 9.1, magnesium 1.7, bilirubin 0 point urine negative for any infection EKG done in the ER showed heart rate of 69, no ST segment elevation or depression seen, no T-wave inversions seen. X-ray tibia and fibula of left showed no osseous abnormality Chest x-ray done in the ER showed no acute cardiopulmonary process Patient admitted to internal medicine service 01/03. Patient seen and examined. Still complaining of weakness of lower extremities. Denied any numbness. Denies any loss of control of urine or stool. REVIEW OF SYSTEMS: CONSTITUTIONAL: No fever, no malaise,. CARDIOVASCULAR: No chest pain, no palpitations, no syncope. PULMONARY: No shortness of breath, no cough, GASTROINTESTINAL: No diarrhea, no nausea, no vomiting, no abdominal pain. NEUROLOGICAL: No headaches, no weakness, PHYSICAL EXAMINATION: GENERAL: The patient is alert and oriented x3, not in any acute distress. Well developed, well nourished. HEENT: Pupils are round and equally reacting to light. EOMI. No scleral icterus. No conjunctival pallor. Normocephalic, atraumatic. No pharyngeal erythema. No thyromegaly. CARDIOVASCULAR: S1 and S2 present. No murmurs, rubs, or gallops. PULMONARY: Chest is clear to auscultation, no wheezing or crackles. ABDOMEN: Soft, nontender, nondistended, normoactive bowel sounds. No palpable organomegaly. MUSCULOSKELETAL: Left leg chronic wound seen, slight erythema noticeable, scaliness of skin noticed EXTREMITIES: No cyanosis, clubbing, or pedal edema. NEUROLOGICAL: Gross neurological examination did not reveal any focal deficits. SKIN: No rashes. Assessment and plan Left leg cellulitis Frequent falls Debility Hypertension Diabetes mellitus History of PE Monitor vital signs Monitor CBC Monitor CMP Continue wound care Continue IV cefepime vancomycin Ordered CPK, serum aldolase Ordered CT thoracic cervical and lumbar spine ID following Labs and medication were reviewed.. Continue same treatment. Continue with symptomatic treatment. Resume home medication. Monitor labs and vitals. DVT and GI prophylaxis. Further recommendations as per clinical course of the patient Dictation was produced using [employer] dictation software. please excuse any grammatical, word or spelling errors. Objective - Vital Signs Vital signs: Vital Signs Temp 97.4 F L 01/04/24 07:18 Pulse 63 01/04/24 07:18 Resp 16 01/04/24 07:18 BP 132/68 01/04/24 07:18 Pulse Ox 94 L 01/04/24 09:29 FiO2 Intake & Output 01/03/24 01/04/24 01/04/24 18:59 06:59 18:59 Intake Total 1860 1180 598 Output Total 150 600 Balance 1710 580 598 Intake: Intake, IV Titration 100 Amount Cefepime 2 gm In Sodium 100 Chloride 0.9% 100 ml @ 200 mls/hr IVPB Q8H [facility] Rx#:[id number] Oral 1860 1080 598 Output: Urine 150 600 Other: Voiding Method Bedside Commode Bedside Commode Urinal Urinal Diaper Diaper # Voids 1 # Bowel Movements 1 - Labs CBC & Chem 7: 01/04/24 05:32 01/04/24 05:32 Labs: Abnormal Lab Results - Last 24 Hours (Table) 01/03/24 01/04/24 01/04/24 Range/Units 12:20 05:32 05:32 WBC 3.53 L (4.50-10.00) X 10*3/uL RBC 3.76 L (4.40-5.60) X 10*6/uL Hgb 12.0 L (13.0-17.0) g/dL Hct 37.1 L (39.6-50.0) % MCV 98.7 H (80.0-97.0) FL Plt Count 137 L (140-440) X 10*3/uL Lymphocytes # 0.73 L (0.90-5.00) X 10*3/uL Eosinophils # 0.48 H (0.04-0.35) X 10*3/uL PT (10.0-12.5) sec INR (<1.2) Est GFR (CKD-EPI) 59 L (>=60) POC Glucose (mg/dL) 66 L (70-110) mg/dL Calcium 8.6 L (8.7-10.3) mg/dL Albumin 3.2 L (3.8-4.9) g/dL Globulin 3.9 H (1.6-3.3) g/dL Albumin/Globulin Ratio 0.82 L (1.60-3.17) Ratio 01/04/24 01/04/24 Range/Units 05:32 07:20 WBC (4.50-10.00) X 10*3/uL RBC (4.40-5.60) X 10*6/uL Hgb (13.0-17.0) g/dL Hct (39.6-50.0) % MCV (80.0-97.0) FL Plt Count (140-440) X 10*3/uL Lymphocytes # (0.90-5.00) X 10*3/uL Eosinophils # (0.04-0.35) X 10*3/uL PT 24.6 H (10.0-12.5) sec INR 2.5 H (<1.2) Est GFR (CKD-EPI) (>=60) POC Glucose (mg/dL) 131 H (70-110) mg/dL Calcium (8.7-10.3) mg/dL Albumin (3.8-4.9) g/dL Globulin (1.6-3.3) g/dL Albumin/Globulin Ratio (1.60-3.17) Ratio Microbiology - Last 24 Hours (Table) 01/02/24 16:15 Gram Stain - Preliminary Leg - Left Wound Culture - Preliminary Gram Neg Bacilli
[2024-01-04 13:45] LABS: C Reactive Protein 3.7 mg/dL (<1.0)
[2024-01-04] MEDS ORDERED: ZINC OXIDE PASTE (Z-GUARD) 1 APPLIC TOPICAL PRN (14:44)
[2024-01-04 17:20] LABS: Glucose,Whole Blood 94 mg/dL (70-110)
[2024-01-04] MEDS: WARFARIN 10 MG TAB PO ONE (17:52)
[2024-01-04] MEDS: CEFEPIME 2 GM in SODIUM CHLORIDE 0.9% 100 ML IVPB SCH (20:03)
[2024-01-04 20:23] LABS: Glucose,Whole Blood 113 mg/dL (70-110)
[2024-01-05 05:20] LABS: INR 2.6 (<1.2); Prothrombin Time 25.8 sec (10.0-12.5)
[2024-01-05 07:05] LABS: Glucose,Whole Blood 115 mg/dL (70-110)
--- NOTE | 2024-01-05 08:43 | P.PN ---
Subjective Progress Note Date: 01/04/24 Principal diagnosis: Reason for follow-up is left lower extremity venous stasis ulcer and cellulitis Patient is a 68-year-old male with a past medical history significant for diabetes mellitus chronic swelling to the bilateral lower extremity and this patient has been dealing with ulceration to bilateral lower extremity off-and-on for the last 3 years and presented to hospital with worsening swelling wound to the lower extremity per advice of his home care nurse. On today's evaluation that is 01/04/2024,the patient remains to be afebrile, patient is on room air not requiring supplemental oxygen and denies any shortness of breath no chest pain or cough.Patient denies having any nausea or vomiting, no abdominal pain and no diarrhea overall swelling discomfort to the leg has decreased in intensity. Patient did have a white count of 3.53 creatinine is 1.3 local culture growing gram-negative Objective - Vital Signs Vital signs: Vital Signs Temp 98.1 F 01/04/24 12:38 Pulse 66 01/04/24 12:38 Resp 16 01/04/24 12:38 BP 152/76 01/04/24 12:38 Pulse Ox 97 01/04/24 12:38 FiO2 Intake & Output 01/03/24 01/04/24 01/04/24 18:59 06:59 18:59 Intake Total 1860 1180 598 Output Total 150 600 Balance 1710 580 598 Intake: Intake, IV Titration 100 Amount Cefepime 2 gm In Sodium 100 Chloride 0.9% 100 ml @ 200 mls/hr IVPB Q8H [facility] Rx#:[id number] Oral 1860 1080 598 Output: Urine 150 600 Other: Voiding Method Bedside Commode Bedside Commode Bedside Commode Urinal Urinal Urinal Diaper Diaper Diaper # Voids 1 # Bowel Movements 1 - Exam GENERAL DESCRIPTION: An elderly male up in the chair in no distress RESPIRATORY SYSTEM: Unlabored breathing , decreased breath sounds at bases HEART: S1 S2 regular rate and rhythm , ABDOMEN: Soft , no tenderness EXTREMITIES: Bilateral legs are currently dressed no drainage - Labs CBC & Chem 7: 01/04/24 05:32 01/04/24 05:32 Labs: Abnormal Lab Results - Last 24 Hours (Table) 01/04/24 01/04/24 01/04/24 Range/Units 05:32 05:32 05:32 WBC 3.53 L (4.50-10.00) X 10*3/uL RBC 3.76 L (4.40-5.60) X 10*6/uL Hgb 12.0 L (13.0-17.0) g/dL Hct 37.1 L (39.6-50.0) % MCV 98.7 H (80.0-97.0) FL Plt Count 137 L (140-440) X 10*3/uL Lymphocytes # 0.73 L (0.90-5.00) X 10*3/uL Eosinophils # 0.48 H (0.04-0.35) X 10*3/uL PT 24.6 H (10.0-12.5) sec INR 2.5 H (<1.2) Est GFR (CKD-EPI) 59 L (>=60) POC Glucose (mg/dL) (70-110) mg/dL Calcium 8.6 L (8.7-10.3) mg/dL Albumin 3.2 L (3.8-4.9) g/dL Globulin 3.9 H (1.6-3.3) g/dL Albumin/Globulin Ratio 0.82 L (1.60-3.17) Ratio 01/04/24 Range/Units 07:20 WBC (4.50-10.00) X 10*3/uL RBC (4.40-5.60) X 10*6/uL Hgb (13.0-17.0) g/dL Hct (39.6-50.0) % MCV (80.0-97.0) FL Plt Count (140-440) X 10*3/uL Lymphocytes # (0.90-5.00) X 10*3/uL Eosinophils # (0.04-0.35) X 10*3/uL PT (10.0-12.5) sec INR (<1.2) Est GFR (CKD-EPI) (>=60) POC Glucose (mg/dL) 131 H (70-110) mg/dL Calcium (8.7-10.3) mg/dL Albumin (3.8-4.9) g/dL Globulin (1.6-3.3) g/dL Albumin/Globulin Ratio (1.60-3.17) Ratio Microbiology - Last 24 Hours (Table) 01/02/24 16:15 Gram Stain - Preliminary Leg - Left Wound Culture - Preliminary Gram Neg Bacilli Assessment and Plan (1) Cellulitis of left lower extremity Current Visit: Yes Status: Acute Code(s): L03.116 - CELLULITIS OF LEFT LOWER LIMB SNOMED Code(s): 03831776208901925 (2) Non-healing wound of left lower extremity Current Visit: Yes Status: Acute Code(s): S81.802A - UNSPECIFIED OPEN WOUND, LEFT LOWER LEG, INITIAL ENCOUNTER SNOMED Code(s): 10724708 Plan: 1patient with multiple nonhealing wound to the left lower extremity likely venous stasis ulcer in this patient who did have diffuse swelling and redness and concerning for secondary cellulitis as the patient reported recent worsening of the wound and drainage will need to cover for both gram-positive as well as gram-negative pathogen. 2patient to continue local wound care with dry Aquacel silver dressing followed by Trent wrap from just above the tube to below the knee to keep the swelling down dressing can be changed every 24-48 hours depending upon the drainage. 3patient local cultures currently pending continue e with empiric vancomycin and cefepime while waiting for the culture to finalize Dictation was produced using [employer] dictation software. please excuse any grammatical, word or spelling errors. Time with Patient: Less than 30
[2024-01-05 09:00] LABS: ALT 19 U/L (10-49); AST 35 U/L (14-35); Albumin 3.3 g/dL (3.8-4.9); Albumin/Globulin Ratio 0.77 Ratio (1.60-3.17); Alkaline Phosphatase 98 U/L (41-126); BUN/Creat Ratio 17.62 Ratio (12.00-20.00); Blood Urea Nitrogen 22.9 mg/dL (9.0-27.0); Calcium 8.7 mg/dL (8.7-10.3); Carbon Dioxide 23.6 mmol/L (21.6-31.8); Chloride 103 mmol/L (96-109); Globulin 4.3 g/dL (1.6-3.3); Glucose 111 mg/dL (70-110); Potassium 4.2 mmol/L (3.5-5.5); Sodium 138 mmol/L (135-145); Total Bilirubin 0.4 mg/dL (0.3-1.2); Total Protein 7.6 g/dL (6.2-8.2)
[2024-01-05 10:17] LABS: Basophils # (A) 0.03 X 10*3/uL (0.00-0.10); Basophils % (A) 0.9 %; Eosinophils # (A) 0.44 X 10*3/uL (0.04-0.35); Eosinophils % (A) 13.3 %; HCT 37.1 % (39.6-50.0); HGB 12.1 g/dL (13.0-17.0); Lymphocytes # (A) 0.79 X 10*3/uL (0.90-5.00); Lymphocytes % (A) 23.9 %; MCH 32.3 pg (27.0-32.0); MCHC 32.6 g/dL (32.0-37.0); MCV 98.9 FL (80.0-97.0); Mean Platelet Volume 10.1 FL (9.5-12.2); Monocytes # (A) 0.34 X 10*3/uL (0.20-1.00); Monocytes % (A) 10.3 %; NRBC Per 100 WBC 0 X 10*3/uL (0.00-0.01); Neutrophils # (A) 1.69 X 10*3/uL (1.80-7.70); Neutrophils % (A) 51.3 %; Platelet Count 152 X 10*3/uL (140-440); RBC 3.75 X 10*6/uL (4.40-5.60); RDW 13.7 % (11.5-14.5)
--- NOTE | 2024-01-05 11:19 | P.CONS ---
History of Present Illness - Reason for Consult Consult date: 01/05/24 - History of Present Illness This is a 68-year-old gentleman being seen on [address] for nonhealing ulcerations Left lower extremiy. Patient states that he has been utilizing dressings with home care for the past few months. He does not know what they are using. Except they are putting Triad and wrapping with Trent wrap and Coban. Patient also has his Farrow wraps that he purchased himself. Patient states that he spends the majority of the time sitting in a chair with his legs dependent. Patient has multiple open ulcerations to Left lower extremity. Patient does have drainage to the site. Ulcerations have minimal granulation with slough and nonviable tissue present wound edges are attached to the wound base no tunneling or undermining noted. The periwound does show excoriation. And dry flaky skin. Patient has history of diabetes and venous insufficiency. Review Of Systems: Constitutional: No fever, no chills, no night sweats. No weight change. No weakness, fatigue or lethargy. No daytime sleepiness. Integumentary:reports wounds, no lesions. No rash or pruritus. No unusual bruising. No change in hair or nails. Physical exam: General Appearance: Alert, cooperative, no distress, appears stated age. Skin: See HPI all other Skin color, texture, tugor normal, no rashes or lesions. Neurologic: Alert oriented x3 Assessment: 1. Nonhealing ulceration with fat layer exposed left lower extremity 2. Diabetes with skin ulceration 3. Chronic venous hypertension with ulceration and inflammation left lower extremity Plan: 1. Apply absorptive silver moistened, Triad to periwound, ABDs rolled gauze secure with tape. Wrap with Trent wrap. Elevate legs 30 minutes 3 times a day. Avoid sitting with legs dependent. We would be happy to see the patient in the wound care center however patient declined at this time due to transportation Thank you for the consultation any questions please contact the wound care center DNP note has been reviewed and discussed with Dr. Sommer and the impression and plan of care has been directed as dictated. Past Medical History Past Medical History: Diabetes Mellitus Additional Past Medical History / Comment(s): Rhabdo History of Any Multi-Drug Resistant Organisms: None Reported Past Surgical History: Joint Replacement Additional Past Surgical History / Comment(s): knee surgery Smoking Status: Never smoker Past Alcohol Use History: Rare Past Drug Use History: None Reported - Past Family History Sister(s) Family Medical History: Vascular Disorder Medications and Allergies Home Medications Medication Instructions Recorded Confirmed Type Acetaminophen-Codeine 300-30mg 1 tab PO Q6H PRN 01/02/24 01/02/24 History [Tylenol w/codeine #3] Bumetanide [BUMEX] 2 mg PO DAILY PRN 01/02/24 01/02/24 History Cyclobenzaprine [Flexeril] 10 mg PO HS 01/02/24 01/02/24 History Levothyroxine Sodium [Synthroid] 137 mcg PO DAILY 01/02/24 01/02/24 History Loratadine [Claritin] 10 mg PO DAILY 01/02/24 01/02/24 History Metoprolol Tartrate [Lopressor] 25 mg PO BID 01/02/24 01/02/24 History Sulfamethox-Tmp 800-160Mg [Bactrim 1 tab PO BID 01/02/24 01/02/24 History DS 800-160 mg] Warfarin [Coumadin] 10 - 15 mg PO HS 01/02/24 01/02/24 History glipiZIDE XL [Glucotrol Xl] 5 mg PO DAILY 01/02/24 01/02/24 History metFORMIN HCL [Glucophage] 500 mg PO BID 01/02/24 01/02/24 History Allergies Allergy/AdvReac Type Severity Reaction Status Date / Time No Known Allergies Allergy Verified 01/02/24 13:20 Physical Exam Vitals: Vital Signs Temp Pulse Resp BP Pulse Ox 01/05/24 09:50 94 L 01/05/24 08:04 97.5 F L 62 16 128/76 98 01/05/24 07:05 97.5 F L 66 16 169/67 98 01/05/24 01:52 97.7 F 74 12 119/65 95 01/04/24 20:00 97.9 F 79 14 132/71 98 01/04/24 12:38 98.1 F 66 16 152/76 97 Intake and Output 01/04/24 01/05/24 01/05/24 22:59 06:59 14:59 Intake Total 1758 540 358 Output Total 700 Balance 1758 -160 358 Intake: Oral 1758 540 358 Output: Urine 700 Other: Voiding Method Bedside Commode Urinal Diaper # Voids 7 Results CBC & Chem 7: 01/05/24 04:36 01/05/24 04:36 Labs: Abnormal Lab Results - Last 24 Hours (Table) 01/04/24 01/04/24 01/05/24 Range/Units 12:54 20:22 04:36 WBC (4.50-10.00) X 10*3/uL RBC (4.40-5.60) X 10*6/uL Hgb (13.0-17.0) g/dL Hct (39.6-50.0) % MCV (80.0-97.0) FL MCH (27.0-32.0) pg Neutrophils # (1.80-7.70) X 10*3/uL Lymphocytes # (0.90-5.00) X 10*3/uL Eosinophils # (0.04-0.35) X 10*3/uL PT 25.8 H (10.0-12.5) sec INR 2.6 H (<1.2) Est GFR (CKD-EPI) (>=60) Glucose (70-110) mg/dL POC Glucose (mg/dL) 113 H (70-110) mg/dL Creatine Kinase 22 L (55-170) U/L C-Reactive Protein 3.7 H (<1.0) mg/dL Albumin (3.8-4.9) g/dL Globulin (1.6-3.3) g/dL Albumin/Globulin Ratio (1.60-3.17) Ratio 01/05/24 01/05/24 01/05/24 Range/Units 04:36 04:36 07:04 WBC 3.30 L (4.50-10.00) X 10*3/uL RBC 3.75 L (4.40-5.60) X 10*6/uL Hgb 12.1 L (13.0-17.0) g/dL Hct 37.1 L (39.6-50.0) % MCV 98.9 H (80.0-97.0) FL MCH 32.3 H (27.0-32.0) pg Neutrophils # 1.69 L (1.80-7.70) X 10*3/uL Lymphocytes # 0.79 L (0.90-5.00) X 10*3/uL Eosinophils # 0.44 H (0.04-0.35) X 10*3/uL PT (10.0-12.5) sec INR (<1.2) Est GFR (CKD-EPI) 59 L (>=60) Glucose 111 H (70-110) mg/dL POC Glucose (mg/dL) 115 H (70-110) mg/dL Creatine Kinase (55-170) U/L C-Reactive Protein (<1.0) mg/dL Albumin 3.3 L (3.8-4.9) g/dL Globulin 4.3 H (1.6-3.3) g/dL Albumin/Globulin Ratio 0.77 L (1.60-3.17) Ratio Microbiology - Last 24 Hours (Table) 01/02/24 16:15 Anaerobic Culture - Preliminary Leg - Left 01/02/24 16:15 Gram Stain - Final Leg - Left Wound Culture - Final Pseudomonas aeruginosa 01/03/24 09:59 Blood Culture - Preliminary Blood 01/03/24 09:41 Blood Culture - Preliminary Blood Assessment and Plan (1) Chronic venous hypertension w/ulcer and inflammation involv left side Current Visit: Yes Status: Acute Code(s): I87.332 - CHRONIC VENOUS HTN W ULCER AND INFLAMMATION OF L LOW EXTREM SNOMED Code(s): 248352248 (2) Type 2 diabetes mellitus with other skin ulcer Current Visit: Yes Status: Acute Code(s): E11.622 - TYPE 2 DIABETES MELLITUS WITH OTHER SKIN ULCER; L98.499 - NON-PRESSURE CHRONIC ULCER OF SKIN OF SITES W UNSP SEVERITY SNOMED Code(s): 259442877305071 (3) Non-pressure chronic ulcer of other part of left lower leg with fat layer exposed Current Visit: Yes Status: Acute Code(s): L97.822 - NON-PRS CHRONIC ULCER OTH PRT L LOW LEG W FAT LAYER EXPOSED SNOMED Code(s): 43440605176805819
[2024-01-05 12:25] LABS: Glucose,Whole Blood 90 mg/dL (70-110)
[2024-01-05] MEDS: HYDROPHILIC CREAM 180 GM TUBE TOPICAL SCH (12:25)
--- NOTE | 2024-01-05 12:52 | P.PN ---
Subjective Progress Note Date: 01/05/24 patient 68-year-old gentleman with past medical history significant for atrial fibrillation, hypertension, diabetes mellitus who presented to the ER because of left leg wounds. Patient stated that he has been dealing with left leg wounds for the last few months. Patient stated that for the last few months he has noticed that there is drainage from his wound on left leg. Patient also noted increasing redness and pain on his left leg. Patient saw his primary care doctor who referred him to come to the ER but patient at that time refused. Patient was given an antibiotic in the form of Bactrim which he has been taking. Patient also complaining of increased weakness and frequent falls. Because of increasing weakness and left leg wounds, patient came to the ER as mentioned above Initial lab work done in the ER showed WBC 3.5, hemoglobin 13.7, platelet count 146, INR 2.2, sodium 139, Tessman 5, BUN 20, creatinine 1.21, glucose 95, HbA1c level 5.3 calcium 9.1, magnesium 1.7, bilirubin 0 point urine negative for any infection EKG done in the ER showed heart rate of 69, no ST segment elevation or depression seen, no T-wave inversions seen. X-ray tibia and fibula of left showed no osseous abnormality Chest x-ray done in the ER showed no acute cardiopulmonary process Patient admitted to internal medicine service 01/03. Patient seen and examined. Still complaining of weakness of lower extremities. Denied any numbness. Denies any loss of control of urine or stool. 01/04. Patient seen and examined. Patient reviewed CT of the spine to evaluate for his weakness. Discussed with him in detail regarding the need for him to get the testing done to have a better idea about his weakness REVIEW OF SYSTEMS: CONSTITUTIONAL: No fever, no malaise,. CARDIOVASCULAR: No chest pain, no palpitations, no syncope. PULMONARY: No shortness of breath, no cough, GASTROINTESTINAL: No diarrhea, no nausea, no vomiting, no abdominal pain. NEUROLOGICAL: No headaches, no weakness, PHYSICAL EXAMINATION: GENERAL: The patient is alert and oriented x3, not in any acute distress. Morbidly obese HEENT: Pupils are round and equally reacting to light. EOMI. No scleral icterus. No conjunctival pallor. Normocephalic, atraumatic. No pharyngeal erythema. No thyromegaly. CARDIOVASCULAR: S1 and S2 present. No murmurs, rubs, or gallops. PULMONARY: Chest is clear to auscultation, no wheezing or crackles. ABDOMEN: Soft, nontender, nondistended, normoactive bowel sounds. No palpable organomegaly. MUSCULOSKELETAL: Left leg chronic wound seen, slight erythema noticeable, scaliness of skin noticed EXTREMITIES: No cyanosis, clubbing, or pedal edema. NEUROLOGICAL: Gross neurological examination did not reveal any focal deficits. SKIN: No rashes. Assessment and plan Left leg cellulitis Frequent falls Debility Hypertension Diabetes mellitus History of PE Monitor vital signs Monitor CBC Monitor CMP Continue wound care Continue IV cefepime vancomycin Patient refused CT thoracic cervical and lumbar spine ID following Wound care following Neurology consulted Labs and medication were reviewed.. Continue same treatment. Continue with symptomatic treatment. Resume home medication. Monitor labs and vitals. DVT and GI prophylaxis. Further recommendations as per clinical course of the patient Dictation was produced using [employer] dictation software. please excuse any grammatical, word or spelling errors. Objective - Vital Signs Vital signs: Vital Signs Temp 97.5 F L 01/05/24 08:04 Pulse 62 01/05/24 08:04 Resp 16 01/05/24 08:04 BP 128/76 01/05/24 08:04 Pulse Ox 94 L 01/05/24 09:50 FiO2 Intake & Output 01/04/24 01/05/24 01/05/24 18:59 06:59 18:59 Intake Total 2596 540 358 Output Total 700 Balance 2596 -160 358 Intake: Oral 2596 540 358 Output: Urine 700 Other: Voiding Method Bedside Commode Bedside Commode Urinal Urinal Diaper Diaper # Voids 7 - Labs CBC & Chem 7: 01/05/24 04:36 01/05/24 04:36 Labs: Abnormal Lab Results - Last 24 Hours (Table) 01/04/24 01/04/24 01/05/24 Range/Units 12:54 20:22 04:36 PT 25.8 H (10.0-12.5) sec INR 2.6 H (<1.2) Est GFR (CKD-EPI) (>=60) Glucose (70-110) mg/dL POC Glucose (mg/dL) 113 H (70-110) mg/dL Creatine Kinase 22 L (55-170) U/L C-Reactive Protein 3.7 H (<1.0) mg/dL Albumin (3.8-4.9) g/dL Globulin (1.6-3.3) g/dL Albumin/Globulin Ratio (1.60-3.17) Ratio 01/05/24 01/05/24 Range/Units 04:36 07:04 PT (10.0-12.5) sec INR (<1.2) Est GFR (CKD-EPI) 59 L (>=60) Glucose 111 H (70-110) mg/dL POC Glucose (mg/dL) 115 H (70-110) mg/dL Creatine Kinase (55-170) U/L C-Reactive Protein (<1.0) mg/dL Albumin 3.3 L (3.8-4.9) g/dL Globulin 4.3 H (1.6-3.3) g/dL Albumin/Globulin Ratio 0.77 L (1.60-3.17) Ratio Microbiology - Last 24 Hours (Table) 01/02/24 16:15 Anaerobic Culture - Preliminary Leg - Left 01/02/24 16:15 Gram Stain - Final Leg - Left Wound Culture - Final Pseudomonas aeruginosa 01/03/24 09:59 Blood Culture - Preliminary Blood 01/03/24 09:41 Blood Culture - Preliminary Blood
--- NOTE | 2024-01-05 14:47 | P.PN ---
Subjective Progress Note Date: 01/05/24 Principal diagnosis: Reason for follow-up is left lower extremity venous stasis ulcer and cellulitis Patient is a 68-year-old male with a past medical history significant for diabetes mellitus chronic swelling to the bilateral lower extremity and this patient has been dealing with ulceration to bilateral lower extremity off-and-on for the last 3 years and presented to hospital with worsening swelling wound to the lower extremity per advice of his home care nurse. On today's evaluation that is 01/05/2024, the patient continues to be afebrile, the patient is on room air and breathing comfortably, the Pt denies having any chest pain or cough, the patient denies having any abdominal pain no vomiting or any diarrhea and denies pain to lower extremity. The patient white count is 3.30, creat is 1.3 cultures growing Pseudomonas aeruginosa blood culture has been negative Objective - Vital Signs Vital signs: Vital Signs Temp 97.5 F L 01/05/24 08:04 Pulse 62 01/05/24 08:04 Resp 16 01/05/24 08:04 BP 128/76 01/05/24 08:04 Pulse Ox 94 L 01/05/24 09:50 FiO2 Intake & Output 01/04/24 01/05/24 01/05/24 18:59 06:59 18:59 Intake Total 2596 540 358 Output Total 700 Balance 2596 -160 358 Intake: Oral 2596 540 358 Output: Urine 700 Other: Voiding Method Bedside Commode Bedside Commode Urinal Urinal Diaper Diaper # Voids 7 - Exam GENERAL DESCRIPTION: An elderly male up in the chair in no distress RESPIRATORY SYSTEM: Unlabored breathing , decreased breath sounds at bases HEART: S1 S2 regular rate and rhythm , ABDOMEN: Soft , no tenderness EXTREMITIES: Left leg dressing was just changed by the student nurse mention overall swelling decreased no redness - Labs CBC & Chem 7: 01/05/24 04:36 01/05/24 04:36 Labs: Abnormal Lab Results - Last 24 Hours (Table) 01/04/24 01/04/24 01/05/24 Range/Units 12:54 20:22 04:36 WBC (4.50-10.00) X 10*3/uL RBC (4.40-5.60) X 10*6/uL Hgb (13.0-17.0) g/dL Hct (39.6-50.0) % MCV (80.0-97.0) FL MCH (27.0-32.0) pg Neutrophils # (1.80-7.70) X 10*3/uL Lymphocytes # (0.90-5.00) X 10*3/uL Eosinophils # (0.04-0.35) X 10*3/uL PT 25.8 H (10.0-12.5) sec INR 2.6 H (<1.2) Est GFR (CKD-EPI) (>=60) Glucose (70-110) mg/dL POC Glucose (mg/dL) 113 H (70-110) mg/dL Creatine Kinase 22 L (55-170) U/L C-Reactive Protein 3.7 H (<1.0) mg/dL Albumin (3.8-4.9) g/dL Globulin (1.6-3.3) g/dL Albumin/Globulin Ratio (1.60-3.17) Ratio 01/05/24 01/05/24 01/05/24 Range/Units 04:36 04:36 07:04 WBC 3.30 L (4.50-10.00) X 10*3/uL RBC 3.75 L (4.40-5.60) X 10*6/uL Hgb 12.1 L (13.0-17.0) g/dL Hct 37.1 L (39.6-50.0) % MCV 98.9 H (80.0-97.0) FL MCH 32.3 H (27.0-32.0) pg Neutrophils # 1.69 L (1.80-7.70) X 10*3/uL Lymphocytes # 0.79 L (0.90-5.00) X 10*3/uL Eosinophils # 0.44 H (0.04-0.35) X 10*3/uL PT (10.0-12.5) sec INR (<1.2) Est GFR (CKD-EPI) 59 L (>=60) Glucose 111 H (70-110) mg/dL POC Glucose (mg/dL) 115 H (70-110) mg/dL Creatine Kinase (55-170) U/L C-Reactive Protein (<1.0) mg/dL Albumin 3.3 L (3.8-4.9) g/dL Globulin 4.3 H (1.6-3.3) g/dL Albumin/Globulin Ratio 0.77 L (1.60-3.17) Ratio Microbiology - Last 24 Hours (Table) 01/02/24 16:15 Anaerobic Culture - Preliminary Leg - Left 01/02/24 16:15 Gram Stain - Final Leg - Left Wound Culture - Final Pseudomonas aeruginosa 01/03/24 09:59 Blood Culture - Preliminary Blood 01/03/24 09:41 Blood Culture - Preliminary Blood Assessment and Plan (1) Cellulitis of left lower extremity Current Visit: Yes Status: Acute Code(s): L03.116 - CELLULITIS OF LEFT LOWER LIMB SNOMED Code(s): 50604000254188762 (2) Non-healing wound of left lower extremity Current Visit: Yes Status: Acute Code(s): S81.802A - UNSPECIFIED OPEN WOUND, LEFT LOWER LEG, INITIAL ENCOUNTER SNOMED Code(s): 48230398 Plan: 1patient with multiple nonhealing wound to the left lower extremity likely venous stasis ulcer in this patient who did have diffuse swelling and redness and concerning for secondary cellulitis as the patient reported recent worsening of the wound and drainage will need to cover for both gram-positive as well as gram-negative pathogen. 2patient to continue local wound care with dry Aquacel silver dressing followed by Trent wrap from just above the tube to below the knee to keep the swelling down dressing can be changed every 24-48 hours depending upon the drainage. 3patient local cultures grew Pseudomonas aeruginosa patient to continue with the cefepime midline and a short course of IV cefepime on discharge Dictation was produced using [employer] dictation software. please excuse any grammatical, word or spelling errors. Time with Patient: Less than 30
[2024-01-05] MEDS: CEFEPIME 2 GM in SODIUM CHLORIDE 0.9% 100 ML IVPB SCH (16:50)
[2024-01-05 17:05] LABS: Glucose,Whole Blood 107 mg/dL (70-110)
[2024-01-05] MEDS: WARFARIN 10 MG TAB PO ONE (18:47)
[2024-01-05 20:17] LABS: Glucose,Whole Blood 102 mg/dL (70-110)
[2024-01-06 05:08] LABS: INR 2.8 (<1.2); Prothrombin Time 27.2 sec (10.0-12.5)
[2024-01-06 07:15] LABS: Glucose,Whole Blood 116 mg/dL (70-110)
--- NOTE | 2024-01-06 12:11 | P.PN ---
Subjective Progress Note Date: 01/06/24 Principal diagnosis: Reason for follow-up is left lower extremity venous stasis ulcer and cellulitis Patient is a 68-year-old male with a past medical history significant for diabetes mellitus chronic swelling to the bilateral lower extremity and this patient has been dealing with ulceration to bilateral lower extremity off-and-on for the last 3 years and presented to hospital with worsening swelling wound to the lower extremity per advice of his home care nurse. On today's evaluation that is 01/06/2024, patient has been afebrile, patient is breathing comfortably and is currently on room air, patient denies having any significant cough no chest pain, patient denies nausea vomiting or diarrhea and no abdominal pain and denies any worsening pain to lower extremity. Patient did have INR of 2.8 blood culture has been negative Objective - Vital Signs Vital signs: Vital Signs Temp 97.4 F L 01/06/24 07:27 Pulse 79 01/06/24 07:27 Resp 12 01/06/24 07:27 BP 115/69 01/06/24 07:27 Pulse Ox 95 01/06/24 07:27 FiO2 Intake & Output 01/05/24 01/06/24 01/06/24 18:59 06:59 18:59 Intake Total 2748 240 240 Output Total 500 Balance 2748 -260 240 Intake: Oral 2748 240 240 Output: Urine 500 Other: Voiding Method Bedside Commode Urinal Urinal Urinal Diaper Diaper Diaper # Voids 6 # Bowel Movements 1 - Exam GENERAL DESCRIPTION: An elderly male up in the chair in no distress RESPIRATORY SYSTEM: Unlabored breathing , decreased breath sounds at bases HEART: S1 S2 regular rate and rhythm , ABDOMEN: Soft , no tenderness EXTREMITIES: Left leg swelling and redness has decreased mostly the wounds are drying out no foul-smelling drainage - Labs CBC & Chem 7: 01/05/24 04:36 01/05/24 04:36 Labs: Abnormal Lab Results - Last 24 Hours (Table) 01/06/24 01/06/24 Range/Units 04:38 07:13 PT 27.2 H (10.0-12.5) sec INR 2.8 H (<1.2) POC Glucose (mg/dL) 116 H (70-110) mg/dL Microbiology - Last 24 Hours (Table) 01/03/24 09:59 Blood Culture - Preliminary Blood 01/03/24 09:41 Blood Culture - Preliminary Blood Assessment and Plan (1) Cellulitis of left lower extremity Current Visit: Yes Status: Acute Code(s): L03.116 - CELLULITIS OF LEFT LOWER LIMB SNOMED Code(s): 04486303080263471 (2) Non-healing wound of left lower extremity Current Visit: Yes Status: Acute Code(s): S81.802A - UNSPECIFIED OPEN WOUND, LEFT LOWER LEG, INITIAL ENCOUNTER SNOMED Code(s): 31916875 Plan: 1patient with multiple nonhealing wound to the left lower extremity likely venous stasis ulcer in this patient who did have diffuse swelling and redness and concerning for secondary cellulitis as the patient reported recent worsening of the wound and drainage will need to cover for both gram-positive as well as gram-negative pathogen. 2patient to continue local wound care with dry Aquacel silver dressing followed by Trent wrap from just above the tube to below the knee to keep the swelling down dressing can be changed every 24-48 hours depending upon the drainage. 3patient local cultures grew Pseudomonas aeruginosa 4-plan is to continue the patient on IV cefepime for about 7 days on discharge Dictation was produced using [employer] dictation software. please excuse any gram matical, word or spelling errors.
[2024-01-06 12:13] LABS: Glucose,Whole Blood 81 mg/dL (70-110)
--- NOTE | 2024-01-06 13:31 | P.PN ---
Subjective Progress Note Date: 01/06/24 patient 68-year-old gentleman with past medical history significant for atrial fibrillation, hypertension, diabetes mellitus who presented to the ER because of left leg wounds. Patient stated that he has been dealing with left leg wounds for the last few months. Patient stated that for the last few months he has noticed that there is drainage from his wound on left leg. Patient also noted increasing redness and pain on his left leg. Patient saw his primary care doctor who referred him to come to the ER but patient at that time refused. Patient was given an antibiotic in the form of Bactrim which he has been taking. Patient also complaining of increased weakness and frequent falls. Because of increasing weakness and left leg wounds, patient came to the ER as mentioned above Initial lab work done in the ER showed WBC 3.5, hemoglobin 13.7, platelet count 146, INR 2.2, sodium 139, Tessman 5, BUN 20, creatinine 1.21, glucose 95, HbA1c level 5.3 calcium 9.1, magnesium 1.7, bilirubin 0 point urine negative for any infection EKG done in the ER showed heart rate of 69, no ST segment elevation or depression seen, no T-wave inversions seen. X-ray tibia and fibula of left showed no osseous abnormality Chest x-ray done in the ER showed no acute cardiopulmonary process Patient admitted to internal medicine service 01/03. Patient seen and examined. Still complaining of weakness of lower extremities. Denied any numbness. Denies any loss of control of urine or stool. 01/04. Patient seen and examined. Patient was having continued weakness and CT of the spine was ordered to evaluate for his weakness. Discussed with him in detail regarding the need for him to get the testing done to have a better idea about his weakness 01/06/2024 Patient is seen in follow-up today with no acute overnight issues noted. Patient is continued on antibiotics and scheduled to receive a midline as patient will require 10 days of IV antibiotic therapy in the form of cefepime. Infectious disease following along with wound care and continuing with local wound care. Plan is for patient to go to [facility] on discharge and currently awaiting insurance authorization. Patient refused CT of the spine as he reports he is unable to lay down like this. Testing was canceled and if patient continues to have progressive weakness recommend outpatient follow-up with primary care provider as well as orthopedics and/or neurology to discuss the need for further imaging. Patient is currently afebrile with no reports of chest pain or shortness of breath. Patient is tolerating diet and denies any nausea or vomiting. REVIEW OF SYSTEMS: CONSTITUTIONAL: No fever, no malaise,. CARDIOVASCULAR: No chest pain, no palpitations, no syncope. PULMONARY: No shortness of breath, no cough, GASTROINTESTINAL: No diarrhea, no nausea, no vomiting, no abdominal pain. NEUROLOGICAL: No headaches, reports of generalized weakness PHYSICAL EXAMINATION: GENERAL: The patient is alert and oriented x3, not in any acute distress. Morbidly obese, appears older than stated age. HEENT: Pupils are round and equally reacting to light. EOMI. No scleral icterus. No conjunctival pallor. Normocephalic, atraumatic. No pharyngeal erythema. No thyromegaly. CARDIOVASCULAR: S1 and S2 muffled PULMONARY: Diminished breath sounds bilaterally otherwise chest is clear to auscultation, no wheezing or crackles. ABDOMEN: Soft, morbidly obese, nontender, nondistended, normoactive bowel sounds. No palpable organomegaly. MUSCULOSKELETAL: Left leg chronic wound seen, slight erythema noticeable, scaliness of skin noticed EXTREMITIES: No cyanosis, clubbing, or pedal edema. NEUROLOGICAL: Gross neurological examination did not reveal any focal deficits. Diffusely weak SKIN: No rashes. Assessment: Left leg cellulitis with cultures growing Pseudomonas. Frequent falls with generalized weakness Debility Hypertension Diabetes mellitus History of PE Morbid obesity with a BMI of 50.2 GI prophylaxis DVT prophylaxis Full code Plan: Patient is continued on IV antibiotics with infectious disease following as cultures have finalized with Pseudomonas of the left lower extremity. Patient also being followed by wound care recommend to continue with current regimen. Patient will need follow-up outpatient and extensive wound care Generalized weakness patient evaluated by physical therapy recommending rehab and patient is agreeable. Yesterday discussion was had between physician and patient regarding generalized weakness recommending CT of the spine although patient reports unable to lay flat does not want to proceed further with this imaging at this time. Discussed with the patient and may need outpatient follow-up with neurology as well as orthopedics in the outpatient setting. Patient also instructed to follow-up with primary care provider to discuss this for further testing as well. Case management following working on discharge planning as patient will be going to [facility] and currently awaiting insurance authorization. Patient is scheduled to receive a midline today and will continue on 10 days of cefepime on discharge Possible discharge planning in the next 24 hours The impression and plan of care has been dictated by Chiquis Carolina, Nurse Practitioner as directed. Dr. Ben MD I have performed a history and examination and MDM of this patient, discussed the same with the dictator, and agree with the dictator's assessment and plan as written ,documented as a scribe. Based on total visit time, I have performed more than 50% of the visit.. So adjustments can to be Objective - Vital Signs Vital signs: Vital Signs Temp 97.4 F L 01/06/24 07:27 Pulse 79 01/06/24 07:27 Resp 12 01/06/24 07:27 BP 115/69 01/06/24 07:27 Pulse Ox 95 01/06/24 07:27 FiO2 Intake & Output 01/05/24 01/06/24 01/06/24 18:59 06:59 18:59 Intake Total 2748 240 240 Output Total 500 Balance 2748 -260 240 Intake: Oral 2748 240 240 Output: Urine 500 Other: Voiding Method Bedside Commode Urinal Urinal Diaper Diaper # Voids 6 # Bowel Movements 1 - Labs CBC & Chem 7: 01/05/24 04:36 01/05/24 04:36 Labs: Abnormal Lab Results - Last 24 Hours (Table) 01/05/24 01/05/24 01/06/24 Range/Units 04:36 04:36 04:38 WBC 3.30 L (4.50-10.00) X 10*3/uL RBC 3.75 L (4.40-5.60) X 10*6/uL Hgb 12.1 L (13.0-17.0) g/dL Hct 37.1 L (39.6-50.0) % MCV 98.9 H (80.0-97.0) FL MCH 32.3 H (27.0-32.0) pg Neutrophils # 1.69 L (1.80-7.70) X 10*3/uL Lymphocytes # 0.79 L (0.90-5.00) X 10*3/uL Eosinophils # 0.44 H (0.04-0.35) X 10*3/uL PT 27.2 H (10.0-12.5) sec INR 2.8 H (<1.2) Est GFR (CKD-EPI) 59 L (>=60) Glucose 111 H (70-110) mg/dL POC Glucose (mg/dL) (70-110) mg/dL Albumin 3.3 L (3.8-4.9) g/dL Globulin 4.3 H (1.6-3.3) g/dL Albumin/Globulin Ratio 0.77 L (1.60-3.17) Ratio 01/06/24 Range/Units 07:13 WBC (4.50-10.00) X 10*3/uL RBC (4.40-5.60) X 10*6/uL Hgb (13.0-17.0) g/dL Hct (39.6-50.0) % MCV (80.0-97.0) FL MCH (27.0-32.0) pg Neutrophils # (1.80-7.70) X 10*3/uL Lymphocytes # (0.90-5.00) X 10*3/uL Eosinophils # (0.04-0.35) X 10*3/uL PT (10.0-12.5) sec INR (<1.2) Est GFR (CKD-EPI) (>=60) Glucose (70-110) mg/dL POC Glucose (mg/dL) 116 H (70-110) mg/dL Albumin (3.8-4.9) g/dL Globulin (1.6-3.3) g/dL Albumin/Globulin Ratio (1.60-3.17) Ratio Microbiology - Last 24 Hours (Table) 01/03/24 09:59 Blood Culture - Preliminary Blood 01/03/24 09:41 Blood Culture - Preliminary Blood
[2024-01-06 17:14] LABS: Glucose,Whole Blood 104 mg/dL (70-110)
[2024-01-06] MEDS: WARFARIN 7.5 MG TAB PO ONE (17:53)
[2024-01-06 19:54] LABS: Glucose,Whole Blood 112 mg/dL (70-110)
[2024-01-07 05:57] LABS: INR 2.8 (<1.2)
[2024-01-07 07:34] LABS: Glucose,Whole Blood 109 mg/dL (70-110)
--- NOTE | 2024-01-07 10:07 | P.DS ---
Providers Date of admission: 01/02/24 15:21 Expected date of discharge: 01/07/24 Attending physician: Jakub Gama Consults: 01/02/24 15:26 Consult Physician Urgent Consulting Provider: Fabrizio Griffith Consult Reason/Comments: Left lower extremity cellulitis and nonhealing wounds Do you want consulting provider notified?: Yes Primary care physician: Stated None Hospital Course: Final diagnosis Left leg cellulitis with cultures growing Pseudomonas. Frequent falls with generalized weakness Debility Hypertension Diabetes mellitus History of PE Morbid obesity with a BMI of 50.2 GI prophylaxis DVT prophylaxis Full code Discharge disposition Patient is being discharged in a stable condition with guarded prognosis to [facility]. Patient will follow-up with Dr. Robin in the outpatient setting upon discharge. Patient is to continue with IV cefepime 3 times daily for a 10-day course per ID recommendations. Follow-up at the wound care center outpatient as scheduled. Total time taken is greater than 35 minutes. Hospital course This is a 68year-old male who was recently admitted with left lower extremity cellulitis being followed with infectious disease along with wound care. Culture showing Pseudomonas showing some clinical improvement and will continue with wound care and outpatient follow-up with the wound care center. Patient is receiving a midline and will continue a 10-day course of IV cefepime on discharge. Patient also takes Coumadin and INR is therapeutic at 2.8 today recommend outpatient follow-up labs closely to adjust Coumadin. Patient to follow-up with primary care provider on discharge. Please refer to other consultation notes for further HPI. Currently no reports of chest pain, shortness of breath, or palpitations. Patient is afebrile. No reports of nausea or vomiting and patient is tolerating diet. Patient will be going to [facility] today. Overall guarded prognosis given significant comorbidities and is at increased risk for readmissions. Physical exam: Gen: This is a 68-year-old male who is awake, alert and oriented x 3, well- developed, elderly appearing, morbidly obese HEENT: Head is atraumatic, normocephalic. Pupils equal, round. Sclerae is anicteric. NECK: Supple. No JVD. No lymphadenopathy. No thyromegaly. LUNGS: Diminished breath sounds bilaterally otherwise clear to auscultation. No wheezes or rhonchi. No intercostal retractions. HEART: S1, S2 are muffled ABDOMEN: Soft. Morbidly obese bowel sounds are present. No masses. No tenderness. EXTREMITIES: No pedal edema. No calf tenderness. Bilateral chronic lower extremity edema left showing some improvement in swelling NEUROLOGICAL: Patient is awake, alert and oriented x3. Cranial nerves 2 through 12 are grossly intact. Diffusely weak Please refer to medication reconciliation sheet for a list of medications. The impression and plan of care has been dictated by Chiquis Carolina, Nurse Practitioner as directed. Dr. Ben MD I have performed a history and examination and MDM of this patient, discussed the same with the dictator, and agree with the dictator's assessment and plan as written ,documented as a scribe. Based on total visit time, I have performed more than 50% of the visit. Patient Condition at Discharge: Fair Plan - Discharge Summary New Discharge Prescriptions: New Cefepime [Maxipime] 2 gm IVPB Q8HR 10 Days #30 each Nystatin 100,000 Unit/gm Powd [Mycostatin Powder] 1 applic TOPICAL TID each Acetaminophen Tab [Tylenol] 650 mg PO Q6HR PRN tab PRN Reason: Mild Pain Or Fever > 100.5 Continue metFORMIN HCL [Glucophage] 500 mg PO BID Cyclobenzaprine [Flexeril] 10 mg PO HS Acetaminophen-Codeine 300-30mg [Tylenol w/codeine #3] 1 tab PO Q6H PRN #4 tab PRN Reason: spa glipiZIDE XL [Glucotrol XL] 5 mg PO DAILY Metoprolol Tartrate [Lopressor] 25 mg PO BID Levothyroxine Sodium [Synthroid] 137 mcg PO DAILY Loratadine [Claritin] 10 mg PO DAILY Bumetanide [BUMEX] 2 mg PO DAILY PRN PRN Reason: Edema Changed Warfarin [Coumadin] 7.5 mg PO HS #30 each Discontinued Sulfamethox-Tmp 800-160Mg [Bactrim DS 800-160 mg] 1 tab PO BID Discharge Medication List Bumetanide [BUMEX] 2 mg PO DAILY PRN 01/02/24 [History] Cyclobenzaprine [Flexeril] 10 mg PO HS 01/02/24 [History] Levothyroxine Sodium [Synthroid] 137 mcg PO DAILY 01/02/24 [History] Loratadine [Claritin] 10 mg PO DAILY 01/02/24 [History] Metoprolol Tartrate [Lopressor] 25 mg PO BID 01/02/24 [History] glipiZIDE XL [Glucotrol XL] 5 mg PO DAILY 01/02/24 [History] metFORMIN HCL [Glucophage] 500 mg PO BID 01/02/24 [History] Acetaminophen Tab [Tylenol] 650 mg PO Q6HR PRN tab 01/07/24 [Rx] Acetaminophen-Codeine 300-30mg [Tylenol w/codeine #3] 1 tab PO Q6H PRN #4 tab 01/07/24 [Rx] Cefepime [Maxipime] 2 gm IVPB Q8HR 10 Days #30 each 01/07/24 [Rx] Nystatin 100,000 Unit/gm Powd [Mycostatin Powder] 1 applic TOPICAL TID each 01/07/24 [Rx] Warfarin [Coumadin] 7.5 mg PO HS #30 each 01/07/24 [Rx] Follow up Appointment(s)/Referral(s): Rao Robin PAC [REFERRING] - 1 Week Activity/Diet/Wound Care/Special Instructions: Patient is going to [email or web address] Activity as tolerated Continue with IV cefepime per ID recommendations for a 10-day course Continue with local wound care on Thursday//Thursday to the left lower extremity by cleansing with normal saline and applying absorbent of silver moistened, Triad cream to the periwound, abd pad, rolled gauze secured with tape and also Trent wrap for compression from the toes up to the knees and Farrow wrap to cover Continue heart healthy diabetic diet Continue with Accu-Cheks before meals and at bedtime Continue sliding scale as needed if blood sugars are elevated NovoLog sliding scale 0-150 equals 0 units 151-200 equals 2 units 201-250 equals 4 units 251-300 equals 6 units 301-350 equals 8 units 351-400 equals 10 units Please notify provider if blood sugar is 400 or above Follow-up labs of CBC, CMP in 2 to 3 days Patient to follow-up with the wound care center outpatient Monitor PT/INR in 1 to 2 days as patient is maintained on Coumadin, currently receiving 7.5 mg daily and INR today is 2.8
[2024-01-07 12:03] VITALS: BP 146/80; PULSE 64; RESP 18; TEMP 98.2
--- NOTE | 2024-01-07 14:23 | P.PN ---
Subjective Progress Note Date: 01/07/24 Principal diagnosis: Reason for follow-up is left lower extremity venous stasis ulcer and cellulitis Patient is a 68-year-old male with a past medical history significant for diabetes mellitus chronic swelling to the bilateral lower extremity and this patient has been dealing with ulceration to bilateral lower extremity off-and-on for the last 3 years and presented to hospital with worsening swelling wound to the lower extremity per advice of his home care nurse. On today's evaluation that is 01/07/2024, Patient is afebrile this morning patient denies having any chest pain shortness of breath or cough, the patient is currently on room air, patient denies any abdominal pain no diarrhea no nausea no vomiting, denies pain to the lower extremity or any drainage. Patient INR is 2.8 no CBC was done today Objective - Vital Signs Vital signs: Vital Signs Temp 98.2 F 01/07/24 12:01 Pulse 64 01/07/24 12:01 Resp 18 01/07/24 12:01 BP 146/80 01/07/24 12:01 Pulse Ox 97 01/07/24 12:01 FiO2 Intake & Output 01/06/24 01/07/24 01/07/24 18:59 06:59 18:59 Intake Total 1320 Output Total 1 400 Balance 1319 -400 Intake: Oral 1320 Output: Urine 400 Stool 1 Other: Voiding Method Urinal Urinal Diaper # Voids 8 - Exam GENERAL DESCRIPTION: An elderly male up in the chair in no distress RESPIRATORY SYSTEM: Unlabored breathing , decreased breath sounds at bases HEART: S1 S2 regular rate and rhythm , ABDOMEN: Soft , no tenderness EXTREMITIES: Bilateral lower extremity currently wrapped no drainage - Labs CBC & Chem 7: 01/05/24 04:36 01/05/24 04:36 Labs: Abnormal Lab Results - Last 24 Hours (Table) 01/06/24 01/07/24 Range/Units 19:47 05:09 PT 28.0 H (10.0-12.5) sec INR 2.8 H (<1.2) POC Glucose (mg/dL) 112 H (70-110) mg/dL Microbiology - Last 24 Hours (Table) 01/02/24 16:15 Anaerobic Culture - Final Leg - Left 01/03/24 09:59 Blood Culture - Preliminary Blood 01/03/24 09:41 Blood Culture - Preliminary Blood Assessment and Plan (1) Cellulitis of left lower extremity Status: Acute Code(s): L03.116 - CELLULITIS OF LEFT LOWER LIMB SNOMED Code(s): 82255309683391123 (2) Non-healing wound of left lower extremity Status: Acute Code(s): S81.802A - UNSPECIFIED OPEN WOUND, LEFT LOWER LEG, INITIAL ENCOUNTER SNOMED Code(s): 07760993 Plan: 1patient with multiple nonhealing wound to the left lower extremity likely venous stasis ulcer in this patient who did have diffuse swelling and redness and concerning for secondary cellulitis as the patient reported recent worsening of the wound and drainage will need to cover for both gram-positive as well as gram-negative pathogen. 2patient to continue local wound care with dry Aquacel silver dressing followed by Trent wrap from just above the tube to below the knee to keep the swelling down dressing can be changed every 24-48 hours depending upon the drainage. 3patient local cultures did grew Pseudomonas aeruginosa 4-patient did have some clinical improvement and plan is to continue the patient on IV cefepime for about 7 days on discharge, question concern answered Dictation was produced using [employer] dictation software. please excuse any grammatical, word or spelling errors. Time with Patient: Less than 30
[2024-01-07] MEDS ORDERED: WARFARIN 7.5 MG TAB PO SCH (18:00)
== END 2024-01-07 12:46 | DRG 300 ==
LOC: EC 11:48 → 5NMEDONC 15:20 → OBSVTOIN 15:21 → 5NMEDONC 16:01
PROVIDERS: ADMIT Hospitalist; ATTEND Hospitalist
PROC: 05HF33Z Insertion of Infusion Device into Left Cephalic Vein, Percutaneous Approach (ICD-10-PCS; principal; 2024-01-06 20:45)
DX: I83.028 Varicose veins of left lower extremity with ulcer other part of lower leg (principal); L03.116 Cellulitis of left lower limb; L97.822 Non-pressure chronic ulcer of other part of left lower leg with fat layer exposed; Z68.43 Body mass index [BMI] 50.0-59.9, adult; E66.01 Morbid (severe) obesity due to excess calories; E11.622 Type 2 diabetes mellitus with other skin ulcer; R29.6 Repeated falls; R53.81 Other malaise; I10 Essential (primary) hypertension; I48.91 Unspecified atrial fibrillation; B96.5 Pseudomonas (aeruginosa) (mallei) (pseudomallei) as the cause of diseases classified elsewhere; Z86.711 Personal history of pulmonary embolism; Z79.890 Hormone replacement therapy; Z79.84 Long term (current) use of oral hypoglycemic drugs
CPT/HCPCS: 36410; 36415; 71046; 76937; 80048; 80053; 81001; 82085; 82550; 83036; 83605; 83735; 83880; 84443; 84484; 85025; 85610; 85730; 86140; 87040; 87070; 87075; 87077; 87186; 87205; 93005; 94760; 96365; 99285